=== PATIENT | male | born 1980 | race Caucasian/White ===

== ENCOUNTER 2024-08-21 03:30 | Inpatient (IN) | payer OTHER ==
[~2024-08-21] VITALS: Ht 185.4 cm; Wt 120.2 kg
[2024-08-21] MEDS ORDERED: KETOROLAC TROMETHAMINE 15 MG INJ ONE (04:01)
[2024-08-21 04:02] LABS: *BILIRUBIN,URIN NEGATIVE (NEGATIVE); *BLOOD, URINE 3+ (NEGATIVE); *CLARITY,URINE CLEAR (CLEAR); *COLOR,URINE YELLOW (YELLOW); *KETONES,URINE NEGATIVE (NEGATIVE); *PROTEIN,URINE 2+ (NEGATIVE); *UROBILINOGEN,URINE 0.2 E.U./dl (NORMAL); LEUKOCYTE ESTERASE ,URINE NEGATIVE (NEGATIVE); NITRITE, URINE NEGATIVE (NEGATIVE); PH,URINE 5.5 (5.0-8.0); UGLUCOSE NEGATIVE (NEGATIVE)
[2024-08-21] MEDS ORDERED: METOCLOPRAMIDE HCL 10 MG/2 ML VIAL ONE (04:02)
[2024-08-21 04:07] LABS: BASOPHILS # (AUTO) 0.1 K/UL (0.0-0.2); BASOPHILS % (AUTO) 0.4 % (0.0-2.0); EOSINOPHILS # (AUTO) 0.1 K/uL (0.0-0.7); HEMATOCRIT 40.1 % (36.7-47.1); HEMOGLOBIN 13.4 g/dL (12.5-16.3); LYMPHOCYTES # (AUTO) 3.4 K/uL (0.8-4.8); LYMPHOCYTES % (AUTO) 23.6 % (20.5-51.5); MEAN CORPUSCULAR HEMOGLOBIN 30.1 uug (23.8-33.4); MEAN CORPUSCULAR HGB CONC 33 g/dL (32.5-36.3); MEAN CORPUSCULAR VOLUME 90.1 fL (73.0-96.2); MONOCYTES # (AUTO) 0.8 K/uL (0.1-1.30); MONOCYTES % (AUTO) 5.8 % (0.0-11.0); NEUTROPHILS % (AUTO) 69.2 % (38.5-71.5); PLATELET COUNT (AUTO) 329 K/uL (152-348); RED BLOOD CELL COUNT(AUTO) 4.45 MIL/uL (4.06-5.63); RED CELL DISTRIBUTION WIDTH 13.6 % (12.1-16.2); WHITE BLOOD COUNT (AUTO) 14.5 K/uL (3.6-10.2)
[2024-08-21] MEDS: KETOROLAC TROMETHAMINE 15 MG INJ IVP ONE (04:07)
[2024-08-21] MEDS: METOCLOPRAMIDE HCL 10 MG/2 ML VIAL IV ONE (04:07)
[2024-08-21 04:09] LABS: BACTERIA,URINE FEW /HPF (NONE SEEN); RBC,URINE 20-50 /HPF (0-3); SQUAMOUS EPITHELIAL CELL,UR FEW /HPF (NONE SEEN); WBC,URINE 0-3 /HPF (0-3)
[2024-08-21 04:10] LABS: DIFFERENTIAL COMMENT 1
[2024-08-21 04:28] LABS: CALCIUM 9.4 mg/dL (8.5-10.1); CARBON DIOXIDE 22 mmol/L (21-32); CHLORIDE 101 mmol/L (98-107); CREATININE 1.5 mg/dL (0.6-1.3); GLUCOSE 140 mg/dL (74-106); POTASSIUM 4.3 mmol/L (3.5-5.1); SODIUM SERUM 138 mmol/L (136-145); UREA NITROGEN, BLOOD 16 mg/dL (7-18)
[2024-08-21] MEDS ORDERED: HYDROMORPHONE 1 MG/1 ML DISP.SYRIN ONE ×2 (04:30→05:07)
[2024-08-21] MEDS: HYDROMORPHONE 1 MG/1 ML DISP.SYRIN IV ONE ×2 (04:35→05:16)
[2024-08-21 04:37] LABS: ALANINE AMINOTRANSFERASE 53 U/L (16-63); ALBUMIN 3.4 g/dL (3.4-5.0); ALKALINE PHOSPHATASE 79 U/L (50-136); ASPARTATE AMINOTRANSFERASE 27 U/L (15-37); BILIRUBIN,DIRECT 0.1 mg/dL (0.0-0.2); BILIRUBIN,TOTAL 0.4 mg/dL (0.2-1.0); TOTAL PROTEIN, SERUM 8.1 g/dL (6.4-8.2)
[2024-08-21] MEDS ORDERED: ONDANSETRON 4 MG/2 ML VIAL ONE (05:07)
[2024-08-21 05:08] LABS: LIPASE 48 U/L (16-77)
[2024-08-21] MEDS ORDERED: ACETAMINOPHEN 325 MG TABLET PO PRN (05:15)
[2024-08-21] MEDS: ONDANSETRON 4 MG/2 ML VIAL IV ONE (05:16)
[2024-08-21] MEDS ORDERED: IV NS 1000 ML 1,000 ML IV ONE (05:45)
[2024-08-21] MEDS: IV NS 1000 ML 1,000 ML IV SCH (05:53)
[2024-08-21] MEDS: TAMSULOSIN HCL 0.4 MG CAP.SR.24H PO ONE (08:10)
[2024-08-21 08:49] VITALS: BP 145/80; TEMP 98.2; O2SAT 94
[2024-08-21] MEDS: ONDANSETRON 4 MG/2 ML VIAL IV PRN (09:32)
[2024-08-21] MEDS: HYDROMORPHONE 1 MG/1 ML DISP.SYRIN IV PRN ×2 (09:32→23:45)
[2024-08-21] MEDS ORDERED: ALLO300T2 PO (10:54)
[2024-08-21] MEDS ORDERED: KETOROLAC TROMETHAMINE 30 MG INJ IM SCH (13:00)
[2024-08-21] MEDS: CEphaleXIN 250 MG CAPSULE PO SCH (13:06)
[2024-08-21] MEDS: DIAZEPAM 5 MG TABLET PO SCH (13:19)
[2024-08-21] MEDS: KETOROLAC TROMETHAMINE 30 MG INJ IVP SCH (13:32)
[2024-08-21 15:18] VITALS: BP 154/83; TEMP 98.7; O2SAT 97
[2024-08-21 19:40] VITALS: BP 161/103; TEMP 98.4; O2SAT 98
[2024-08-21] MEDS: MAGNESIUM HYDROXIDE 30 ML LIQUID UDC PO PRN (19:49)
[2024-08-21] MEDS ORDERED: KETOROLAC TROMETHAMINE 30 MG INJ IVP SCH (20:00)
[2024-08-21] MEDS: TAMSULOSIN HCL 0.4 MG CAP.SR.24H PO SCH (20:32)
[2024-08-22 06:33] VITALS: BP 146/84; TEMP 99.1; O2SAT 98
[2024-08-22 06:50] LABS: BASOPHILS % (AUTO) 0.2 % (0.0-2.0); EOSINOPHILS # (AUTO) 0.1 K/uL (0.0-0.7); EOSINOPHILS % (AUTO) 0.3 % (0.0-7.0); HEMOGLOBIN 12.6 g/dL (12.5-16.3); LYMPHOCYTES # (AUTO) 2.2 K/uL (0.8-4.8); MEAN CORPUSCULAR HEMOGLOBIN 30.8 uug (23.8-33.4); MEAN CORPUSCULAR HGB CONC 34 g/dL (32.5-36.3); MEAN CORPUSCULAR VOLUME 90.4 fL (73.0-96.2); MONOCYTES # (AUTO) 1.1 K/uL (0.1-1.30); MONOCYTES % (AUTO) 6.7 % (0.0-11.0); NEUTROPHILS # (AUTO) 13.3 K/uL (1.8-8.9); NEUTROPHILS % (AUTO) 79.8 % (38.5-71.5); PLATELET COUNT (AUTO) 318 K/uL (152-348); RED BLOOD CELL COUNT(AUTO) 4.09 MIL/uL (4.06-5.63); RED CELL DISTRIBUTION WIDTH 13.5 % (12.1-16.2); WHITE BLOOD COUNT (AUTO) 16.7 K/uL (3.6-10.2)
[2024-08-22 06:52] LABS: DIFFERENTIAL COMMENT 1
[2024-08-22 07:06] LABS: CALCIUM 8.7 mg/dL (8.5-10.1); CREATININE 1.8 mg/dL (0.6-1.3); MAGNESIUM 2.4 mg/dL (1.8-2.4); PHOSPHOROUS 4.2 mg/dL (2.5-4.9); POTASSIUM 4.1 mmol/L (3.5-5.1)
[2024-08-22] MEDS: ALLOPURINOL 300 MG TABLET PO SCH (08:29)
[2024-08-22] MEDS: LACTULOSE 20 G/30 ML LIQUID UDC PO ONE (09:14)
[2024-08-22] MEDS: SORBITOL 70% SOLUTION 30 ML UDC PEG ONE (09:14)
[2024-08-22] MEDS ORDERED: DIAZEPAM 10 MG/2 ML DISP.SYRIN IV PRN (10:00)
[2024-08-22 16:00] VITALS: BP 144/81; TEMP 97.6; O2SAT 99
[2024-08-22] MEDS: IV NS 1000 ML 1,000 ML IV PRN (20:14)
[2024-08-22 20:35] VITALS: BP 140/67; TEMP 99.6; O2SAT 100
[2024-08-23 07:06] VITALS: BP 121/71; TEMP 98.8; O2SAT 95
[2024-08-23 07:08] LABS: BASOPHILS % (AUTO) 0.3 % (0.0-2.0); EOSINOPHILS # (AUTO) 0.1 K/uL (0.0-0.7); EOSINOPHILS % (AUTO) 0.4 % (0.0-7.0); HEMATOCRIT 36.7 % (36.7-47.1); HEMOGLOBIN 12.2 g/dL (12.5-16.3); LYMPHOCYTES % (AUTO) 12.5 % (20.5-51.5); MEAN CORPUSCULAR HEMOGLOBIN 30.6 uug (23.8-33.4); MEAN CORPUSCULAR HGB CONC 33 g/dL (32.5-36.3); MEAN CORPUSCULAR VOLUME 92.3 fL (73.0-96.2); MONOCYTES # (AUTO) 1.2 K/uL (0.1-1.30); NEUTROPHILS # (AUTO) 12.3 K/uL (1.8-8.9); NEUTROPHILS % (AUTO) 78.8 % (38.5-71.5); PLATELET COUNT (AUTO) 288 K/uL (152-348); RED BLOOD CELL COUNT(AUTO) 3.98 MIL/uL (4.06-5.63); RED CELL DISTRIBUTION WIDTH 13.9 % (12.1-16.2); WHITE BLOOD COUNT (AUTO) 15.6 K/uL (3.6-10.2)
[2024-08-23 07:34] LABS: CALCIUM 8.6 mg/dL (8.5-10.1); CREATININE 1.9 mg/dL (0.6-1.3); MAGNESIUM 2.4 mg/dL (1.8-2.4); PHOSPHOROUS 3.1 mg/dL (2.5-4.9); POTASSIUM 4.5 mmol/L (3.5-5.1)
[2024-08-23 07:39] LABS: DIFFERENTIAL COMMENT 1
[2024-08-23] MEDS ORDERED: CEPH250C PO (13:46)
[2024-08-23] MEDS ORDERED: TAMS-3 PO (13:46)
== END 2024-08-23 11:25 | disposition home or self-care (01) | DRG 690 ==
LOC: ER 03:40 → MEDSURG3 07:48
PROVIDERS: ATTEND Nurse Practitioner Acute Care
DX: N13.6 Pyonephrosis (principal); N17.9 Acute kidney failure, unspecified; M10.9 Gout, unspecified; K59.00 Constipation, unspecified; Z90.49 Acquired absence of other specified parts of digestive tract; Z84.1 Family history of disorders of kidney and ureter; Z53.20 Procedure and treatment not carried out because of patient's decision for unspecified reasons
CPT/HCPCS: 36415; 76770; 83690; 83735; 84100; 84484; 85025; G0378; J1171; J1885; J2405; J2765; J7040